=== PATIENT | female | born 1940 | race Caucasian/White ===

== ENCOUNTER 2019-06-01 17:56 | Emergency (ER) | payer MEDICARE, BC ==
[2019-06-01] MEDS ORDERED: cloNIDine 0.1 MG TAB ONE ×3 (18:33→20:23)
[2019-06-01] MEDS ORDERED: Adacel (T-DAP) 0.5 ML SYRINGE ONE (18:34)
--- NOTE | 2019-06-01 20:36 | CT ---
CT BRAIN: 06/01/19 PROVIDED CLINICAL HISTORY: Head injury. FINDINGS: No comparisons. The ventricular system appears normal in size and morphology. There is no evidence fo r intracranial hemorrhage or mass effect. There is a rounded 8 mm hyperdense mass present in the fora men of [place] compatible with a colloid cyst. There is no hydrocephalus. The extracranial soft tissues and osseous structures appear unremarkable with the exception of occipital scalp hematoma. IMPRESSION: 1. No evidence for intracranial hemorrhage or mass effect. 2. 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 Consider nonemergent neurosurgical cons ultation. POS: JANE
== END 2019-06-01 20:52 | disposition home or self-care (01) ==
LOC: ERS 17:56
DX: S00.03XA Contusion of scalp, initial encounter (principal); I10 Essential (primary) hypertension; E11.9 Type 2 diabetes mellitus without complications; J45.909 Unspecified asthma, uncomplicated; Z79.84 Long term (current) use of oral hypoglycemic drugs; Z79.899 Other long term (current) drug therapy; W01.10XA Fall on same level from slipping, tripping and stumbling with subsequent striking against unspecified object, initial encounter; Y92.481 Parking lot as the place of occurrence of the external cause
CPT/HCPCS: 70450; 90471; 90715

== ENCOUNTER 2022-01-31 09:48 | Outpatient (CLI) | payer MEDICARE, BC | END 2022-01-31 09:49 | disposition home or self-care (01) | LOC: BICMAMMO 09:48 | PROVIDERS: ATTEND Internal Medicine | DX: Z12.31 Encounter for screening mammogram for malignant neoplasm of breast (principal); Z91.89 Other specified personal risk factors, not elsewhere classified | CPT/HCPCS: 77063; 77067 ==

== ENCOUNTER 2023-02-21 10:04 | Outpatient (CLI) | payer MEDICARE, BC | END 2023-02-21 10:05 | disposition home or self-care (01) | LOC: BICMAMMO 10:04 | PROVIDERS: ATTEND Internal Medicine | DX: Z12.31 Encounter for screening mammogram for malignant neoplasm of breast (principal) | CPT/HCPCS: 77063; 77067 ==

== ENCOUNTER 2023-11-23 09:10 | Inpatient (IN) | payer MEDICARE, BC ==
[2023-11-23] MEDS ORDERED: niCARdipine 25 MG/10 ML SDV ONE ×2 (09:34→12:08)
[2023-11-23 09:38] LABS: #Basophils 0.04 10x3/uL (0.0-0.2); %Basophils 0.6 % (0.0-1.0); %Eosinophils 2.4 % (0.0-10.0); %Lymphocytes 19.8 % (21.0-51.0); %Neutrophils 68.1 % (42.0-75.0); Hematocrit 43.1 % (36.0-47.0); Hemoglobin 14.1 g/dL (12.0-16.0); Mean Corpuscular HGB CONC 32.7 g/dL (32.0-36.0); Mean Corpuscular Hemoglobin 29.1 pg (27.0-31.0); Mean Platelet Volume 9.9 fL (7.4-10.4); Platelet Count 182 10x3/uL (130-400); RBC Distribution Width 12.7 % (11.5-14.5); Red Blood Cell (RBC) Count 4.84 mill/uL (4.20-5.40)
[2023-11-23 09:52] LABS: Prothrombin Time 13.3 sec (12.0-14.7)
[2023-11-23 09:53] LABS: ALT (SGPT) 13 U/L (8-55); AST (SGOT) 15 U/L (5-34); Albumin 3.3 g/dL (3.4-4.8); Alkaline Phosphatase 77 U/L (40-110); Anion Gap 14 mmol/L (10-20); BUN (Urea Nitrogen) 28 mg/dL (9.8-20.1); Bilirubin, Total 0.5 mg/dL (0.2-1.2); Calc. Creatinine Clearance 0 mL/min (70-130); Calcium 9.2 mg/dL (7.8-10.44); Carbon Dioxide 19 mmol/L (23-31); Chloride 109 mmol/L (98-107); Estimated GFR 54; Globulin 3.2 g/dL (2.4-3.5); Glucose 249 mg/dL (83-110); PTT 26.5 sec (22.9-36.1); Potassium 4.4 mmol/L (3.5-5.1); Protein, Total 6.5 g/dL (5.8-8.1); Sodium 138 mmol/L (136-145)
[2023-11-23 09:58] LABS: Troponin I 0.016 ng/mL (< 0.028)
[2023-11-23 10:33] LABS: Bacteria/HPF None Seen HPF (None Seen); Bilirubin Negative (Negative); Blood, Urine Trace (Negative); CAUTI Indications for Culture Alt mental st,lethar; Clarity Clear (Clear); Glucose, Urine (Dipstick) Normal (Negative); Ketone, Urine Negative (Negative); Leukocyte Negative Leu/uL (Negative); Nitrite Negative (Negative); Protein, Urine (Dipstick) 30 mg/dL (Neg-Trace); Squamous Epithelial 0-3 HPF (0-3); Urobilinogen Normal mg/dL (Less than 2); WBC/HPF 0-3 HPF (0-3)
[2023-11-23 10:34] LABS: Urine Culture Reflex No No
[2023-11-23] MEDS ORDERED: Ondansetron PF 4 MG/2 ML Vial IVP PRN (12:01)
[2023-11-23] MEDS ORDERED: Senokot S 8.6-50 MG TAB PO PRN (12:01)
[2023-11-23] MEDS ORDERED: niCARdipine 25 MG in Sodium Chloride 0.9% 250 ML 250 ML IVPB PRN (12:01)
[2023-11-23] MEDS ORDERED: Glucagon 1 MG/ML KIT IM PRN (12:01)
[2023-11-23] MEDS ORDERED: Dextrose 5% in Water 1,000 ML IV PRN (12:01)
[2023-11-23] MEDS ORDERED: Dextrose 50% Abboject 50 ML SYRINGE SLOW IVP PRN (12:01)
[2023-11-23] MEDS ORDERED: Calcium Carbonate 500 MG ChewTAB PO PRN (12:01)
[2023-11-23] MEDS ORDERED: Electrolyte Replacement Protocol FS PRN (12:30)
[2023-11-23 13:34] VITALS: BMI 26.7
[2023-11-23] MEDS: Insulin Lispro 100 UNIT/ML 10 ML VIAL SC PRN (15:36)
[2023-11-23] MEDS: niCARdipine 25 MG in Sodium Chloride 0.9% 250 ML 250 ML IVPB PRN (15:38)
[2023-11-23] MEDS: Acetaminophen 650 MG Suppository PR PRN (16:20)
[2023-11-23] MEDS: Lactated Ringer's 1,000 ML IV SCH (20:13)
[2023-11-23] MEDS: Famotidine/PF 20 mg/2ml Vial SLOW IVP SCH (20:13)
[2023-11-23] MEDS: Atorvastatin Calcium 40 MG TAB PO SCH (20:14)
[2023-11-23] MEDS: Electrolyte Replacement Protocol 1 EACH IVPB ONE (21:13)
[2023-11-23] MEDS: Labetalol HCl 100 MG/20 ML VIAL SLOW IVP PRN (23:37)
[2023-11-24 04:57] LABS: #Basophils 0.04 10x3/uL (0.0-0.2); %Basophils 0.4 % (0.0-1.0); %Eosinophils 0.7 % (0.0-10.0); %Lymphocytes 23.1 % (21.0-51.0); %Monocytes 11.3 % (0.0-10.0); %Neutrophils 64.1 % (42.0-75.0); Hematocrit 41.4 % (36.0-47.0); Hemoglobin 13.3 g/dL (12.0-16.0); Mean Corpuscular HGB CONC 32.1 g/dL (32.0-36.0); Mean Corpuscular Hemoglobin 28.7 pg (27.0-31.0); Mean Corpuscular Volume 89.4 fL (78.0-98.0); Mean Platelet Volume 10.4 fL (7.4-10.4); Platelet Count 207 10x3/uL (130-400); RBC Distribution Width 12.8 % (11.5-14.5); Red Blood Cell (RBC) Count 4.63 mill/uL (4.20-5.40)
[2023-11-24 05:05] LABS: ALT (SGPT) 15 U/L (8-55); AST (SGOT) 18 U/L (5-34); Alkaline Phosphatase 69 U/L (40-110); Anion Gap 13 mmol/L (10-20); BUN (Urea Nitrogen) 29 mg/dL (9.8-20.1); Bilirubin, Total 0.6 mg/dL (0.2-1.2); Calc. Creatinine Clearance 55 mL/min (70-130); Calcium 8.7 mg/dL (7.8-10.44); Carbon Dioxide 19 mmol/L (23-31); Cardiac Risk 5.4 (Less than 4.5); Chloride 110 mmol/L (98-107); Cholesterol 182 mg/dl (< 200 Desired); Estimated GFR 67; Glucose 97 mg/dL (83-110); HDL Cholesterol 34 mg/dL (>60 Neg Risk); LDL Cholesterol, Calculated 107 mg/dL; Potassium 4.1 mmol/L (3.5-5.1); Sodium 138 mmol/L (136-145); Triglycerides 206 mg/dL (Less than 150)
[2023-11-24] MEDS: Lactated Ringer's 1,000 ML IV SCH (08:35)
[2023-11-24] MEDS: Morphine 4 MG/ML VIAL SLOW IVP PRN (09:18)
[2023-11-24] MEDS: Albumin 25% 25 GM (100 mL) BOT IVPB SCH (18:40)
[2023-11-24] MEDS: Lactated Ringer's 500 ML IV SCH (23:02)
[2023-11-25] MEDS: Furosemide 20 MG (2 mL) VIAL SLOW IVP SCH (00:24)
[2023-11-25 04:09] LABS: #Basophils 0.04 10x3/uL (0.0-0.2); %Basophils 0.5 % (0.0-1.0); %Eosinophils 2.1 % (0.0-10.0); %Lymphocytes 14.5 % (21.0-51.0); %Monocytes 10.7 % (0.0-10.0); %Neutrophils 71.9 % (42.0-75.0); Hematocrit 41.8 % (36.0-47.0); Hemoglobin 13.6 g/dL (12.0-16.0); Mean Corpuscular HGB CONC 32.5 g/dL (32.0-36.0); Mean Corpuscular Hemoglobin 29.1 pg (27.0-31.0); Mean Corpuscular Volume 89.5 fL (78.0-98.0); Mean Platelet Volume 10.3 fL (7.4-10.4); Platelet Count 189 10x3/uL (130-400); Red Blood Cell (RBC) Count 4.67 mill/uL (4.20-5.40)
[2023-11-25 04:24] LABS: Anion Gap 13 mmol/L (10-20); BUN (Urea Nitrogen) 28 mg/dL (9.8-20.1); Calc. Creatinine Clearance 56 mL/min (70-130); Calcium 8.7 mg/dL (7.8-10.44); Carbon Dioxide 19 mmol/L (23-31); Chloride 110 mmol/L (98-107); Estimated GFR 65; Glucose 104 mg/dL (83-110); Magnesium 1.8 mg/dL (1.6-2.6); Sodium 138 mmol/L (136-145)
[2023-11-25] MEDS: Magnesium 2 GM/50 ML(in water) 2 GM in Premix 1 BAG IVPB SCH (06:49)
[2023-11-25] MEDS ORDERED: Dextrose 5%-Lactated Ringers 1,000 ML IV SCH (09:00)
[2023-11-25] MEDS: cloNIDine 0.1mg/24 Hour PATCH TD SCH (10:02)
[2023-11-25] MEDS: Dextrose 5%-Lactated Ringers 1,000 ML IV SCH (10:18)
[2023-11-25] MEDS ORDERED: Iopamidol-370 76% 500 ML MDV (1 ML CHARGE) ONE (10:36)
[2023-11-25] MEDS ORDERED: Artificial Tear Ophth Sol 15 ML BOT EA EYE PRN (15:37)
[2023-11-25] MEDS ORDERED: Sodium Chloride 0.65% Nasal 44 ML BOT EA NARE PRN (15:37)
[2023-11-25] MEDS ORDERED: Loratadine 10 MG TAB PO PRN (15:37)
[2023-11-25] MEDS ORDERED: Lorazepam 2 MG/ML VIAL SLOW IVP PRN (15:41)
[2023-11-25] MEDS: LevoFLOXacin 500 mg/D5W 500 MG in Premix 1 BAG IVPB SCH (17:02)
[2023-11-25] MEDS: Sodium Chloride 3% (15 ML) NEB NEB SCH (17:02)
[2023-11-25] MEDS: Losartan 25 MG TAB PO SCH (22:25)
[2023-11-26 05:54] LABS: Anion Gap 12 mmol/L (10-20); BUN (Urea Nitrogen) 24 mg/dL (9.8-20.1); Calc. Creatinine Clearance 56 mL/min (70-130); Calcium 8.8 mg/dL (7.8-10.44); Carbon Dioxide 24 mmol/L (23-31); Chloride 105 mmol/L (98-107); Estimated GFR 66; Glucose 122 mg/dL (83-110); Sodium 137 mmol/L (136-145)
[2023-11-26] MEDS ORDERED: Enalaprilat Dihydrate 1.25 MG/ML VIAL SLOW IVP PRN (08:44)
[2023-11-26] MEDS: cloNIDine 0.2mg/24 Hour PATCH TD SCH (09:36)
[2023-11-26] MEDS: Labetalol HCl 100 MG TAB PO SCH ×2 (11:13→20:47)
[2023-11-26] MEDS: Enalaprilat Dihydrate 1.25 MG/ML VIAL SLOW IVP PRN (15:28)
[2023-11-26] MEDS ORDERED: Chlorthalidone 25 MG TAB PO SCH (15:41)
[2023-11-26] MEDS: Chlorthalidone 25 MG TAB PO SCH (16:04)
[2023-11-26] MEDS: Amlodipine 5 MG TAB PO SCH (18:45)
[2023-11-26] MEDS: Acetaminophen 325 MG TAB PO PRN (22:51)
[2023-11-27] MEDS: Amlodipine 5 MG TAB PO SCH ×2 (08:38→16:00)
[2023-11-27] MEDS: Chlorthalidone 25 MG TAB PO SCH (08:39)
[2023-11-27] MEDS: Labetalol HCl 100 MG/20 ML VIAL SLOW IVP PRN (11:12)
[2023-11-28] MEDS: Loperamide HCl 2 MG CAP PO PRN (03:27)
[2023-11-28] MEDS: Amlodipine 10 MG TAB PO SCH (09:21)
[2023-11-29 04:05] LABS: #Basophils 0.05 10x3/uL (0.0-0.2); %Basophils 0.5 % (0.0-1.0); %Eosinophils 4.6 % (0.0-10.0); %Lymphocytes 17.2 % (21.0-51.0); %Monocytes 13.1 % (0.0-10.0); %Neutrophils 64.2 % (42.0-75.0); Hematocrit 38.3 % (36.0-47.0); Hemoglobin 12.9 g/dL (12.0-16.0); Mean Corpuscular HGB CONC 33.7 g/dL (32.0-36.0); Mean Corpuscular Hemoglobin 29.1 pg (27.0-31.0); Mean Corpuscular Volume 86.3 fL (78.0-98.0); Mean Platelet Volume 11.3 fL (7.4-10.4); Platelet Count 199 10x3/uL (130-400); RBC Distribution Width 12.9 % (11.5-14.5); Red Blood Cell (RBC) Count 4.44 mill/uL (4.20-5.40)
[2023-11-29 04:17] LABS: Anion Gap 13 mmol/L (10-20); BUN (Urea Nitrogen) 41 mg/dL (9.8-20.1); Calc. Creatinine Clearance 42 mL/min (70-130); Calcium 8.6 mg/dL (7.8-10.44); Carbon Dioxide 24 mmol/L (23-31); Chloride 102 mmol/L (98-107); Estimated GFR 48; Glucose 118 mg/dL (83-110); Potassium 4.1 mmol/L (3.5-5.1); Sodium 135 mmol/L (136-145)
[2023-11-29] MEDS: Preparation H Suppository PR PRN (17:56)
[2023-11-30 06:00] LABS: #Basophils Less than 0.03 10x3/uL (0.0-0.2); %Basophils 0.3 % (0.0-1.0); %Eosinophils 4.9 % (0.0-10.0); %Lymphocytes 15.9 % (21.0-51.0); %Monocytes 11.8 % (0.0-10.0); %Neutrophils 66.6 % (42.0-75.0); Hematocrit 37.5 % (36.0-47.0); Hemoglobin 12.3 g/dL (12.0-16.0); Mean Corpuscular HGB CONC 32.8 g/dL (32.0-36.0); Mean Corpuscular Hemoglobin 28.5 pg (27.0-31.0); Mean Corpuscular Volume 86.8 fL (78.0-98.0); Mean Platelet Volume 10.8 fL (7.4-10.4); Platelet Count 186 10x3/uL (130-400); RBC Distribution Width 12.9 % (11.5-14.5); Red Blood Cell (RBC) Count 4.32 mill/uL (4.20-5.40)
[2023-11-30] MEDS: LevoFLOXacin 750 mg/D5W 750 MG in Premix 1 BAG IVPB SCH (08:59)
[2023-11-30] MEDS: Cyclobenzaprine 10 MG TAB PO SCH (15:57)
[2023-12-01 04:27] LABS: #Basophils Less than 0.03 10x3/uL (0.0-0.2); %Basophils 0.3 % (0.0-1.0); %Eosinophils 4.9 % (0.0-10.0); %Lymphocytes 21.5 % (21.0-51.0); %Neutrophils 59.9 % (42.0-75.0); Hematocrit 37.9 % (36.0-47.0); Hemoglobin 12.8 g/dL (12.0-16.0); Mean Corpuscular HGB CONC 33.8 g/dL (32.0-36.0); Mean Corpuscular Hemoglobin 29.1 pg (27.0-31.0); Mean Corpuscular Volume 86.1 fL (78.0-98.0); Mean Platelet Volume 10.9 fL (7.4-10.4); Platelet Count 194 10x3/uL (130-400); RBC Distribution Width 12.9 % (11.5-14.5)
[2023-12-01] MEDS: Guaifenesin DM 100-10/5 ML UDCUP PO PRN (09:11)
[2023-12-01 10:57] VITALS: BMI 27.7
[2023-12-01 16:23] VITALS: BP 121/58; TEMP 97.5
== END 2023-12-01 18:34 | DRG 64 ==
LOC: ERS 09:10 → CCU 12:21 → 2SE 11-25 21:12
PROVIDERS: ADMIT Internal Medicine; ATTEND Internal Medicine
PROC: 4A00X4Z Measurement of Central Nervous Electrical Activity, External Approach (ICD-10-PCS; principal; 2023-11-25)
DX: I62.9 Nontraumatic intracranial hemorrhage, unspecified (principal); G93.41 Metabolic encephalopathy; G93.6 Cerebral edema; G81.94 Hemiplegia, unspecified affecting left nondominant side; I16.1 Hypertensive emergency; G93.0 Cerebral cysts; E88.09 Other disorders of plasma-protein metabolism, not elsewhere classified; R13.12 Dysphagia, oropharyngeal phase; R53.81 Other malaise; J32.9 Chronic sinusitis, unspecified; W19.XXXA Unspecified fall, initial encounter; E78.5 Hyperlipidemia, unspecified; I10 Essential (primary) hypertension; Z66 Do not resuscitate; E11.9 Type 2 diabetes mellitus without complications; J45.909 Unspecified asthma, uncomplicated; Z90.49 Acquired absence of other specified parts of digestive tract; Z90.710 Acquired absence of both cervix and uterus; Y93.89 Activity, other specified; Y92.89 Other specified places as the place of occurrence of the external cause; Z88.8 Allergy status to other drugs, medicaments and biological substances; Z79.899 Other long term (current) drug therapy; Z79.84 Long term (current) use of oral hypoglycemic drugs; E87.8 Other disorders of electrolyte and fluid balance, not elsewhere classified; Z88.2 Allergy status to sulfonamides; Z88.5 Allergy status to narcotic agent
CPT/HCPCS: 36415; 36416; 51702; 70450; 70496; 70498; 70551; 71045; 72125; 74018; 74230; 80048; 80053; 80061; 81001; 83735; 84443; 84484; 85025; 85610; 85730; 93005; 94640; 94760; 95700; 95711; 95957; 96365; 96366; 99292; J1815; J1940; J1956; J2272; J3475; J3490; J7050; J7120; P9047; Q9967

== ENCOUNTER 2024-01-05 19:02 | Inpatient (IN) | payer MEDICARE, BC ==
[2024-01-05 20:38] LABS: #Basophils 0.03 10x3/uL (0.0-0.2); %Basophils 0.3 % (0.0-1.0); %Eosinophils 0.8 % (0.0-10.0); %Lymphocytes 10.2 % (21.0-51.0); %Monocytes 6.7 % (0.0-10.0); Hematocrit 31.1 % (36.0-47.0); Hemoglobin 10.4 g/dL (12.0-16.0); Mean Corpuscular HGB CONC 33.4 g/dL (32.0-36.0); Mean Corpuscular Hemoglobin 27.7 pg (27.0-31.0); Mean Corpuscular Volume 82.7 fL (78.0-98.0); Mean Platelet Volume 9.5 fL (7.4-10.4); Platelet Count 222 10x3/uL (130-400); RBC Distribution Width 13.5 % (11.5-14.5); Red Blood Cell (RBC) Count 3.76 mill/uL (4.20-5.40)
[2024-01-05 20:57] LABS: INR-International Normal Ratio 1.2; Prothrombin Time 15.4 sec (12.0-14.7)
[2024-01-05 20:58] LABS: PTT 23.2 sec (22.9-36.1)
[2024-01-05 21:08] LABS: ALT (SGPT) 22 U/L (8-55); AST (SGOT) 19 U/L (5-34); Albumin 2.4 g/dL (3.4-4.8); Alkaline Phosphatase 99 U/L (40-110); Anion Gap 21 mmol/L (10-20); Bilirubin, Total 0.7 mg/dL (0.2-1.2); Calc. Creatinine Clearance 0 mL/min (70-130); Calcium 8.5 mg/dL (7.8-10.44); Carbon Dioxide 22 mmol/L (23-31); Chloride 97 mmol/L (98-107); Estimated GFR 6; Globulin 3.7 g/dL (2.4-3.5); Glucose 227 mg/dL (83-110); Potassium 4.9 mmol/L (3.5-5.1); Protein, Total 6.1 g/dL (5.8-8.1); Sodium 135 mmol/L (136-145)
[2024-01-05 21:28] LABS: BUN (Urea Nitrogen) Greater than 125 mg/dL (9.8-20.1)
[2024-01-05] MEDS ORDERED: cefTRIAXone (ROCEPHIN) 1 GM VIAL ONE (22:19)
[2024-01-05] MEDS ORDERED: Sodium Chloride 0.9% 100 ML ONE (22:19)
[2024-01-05 22:27] LABS: Clarity Extra Turbid (Clear)
[2024-01-05 22:30] LABS: Bilirubin Negative (Negative); Blood, Urine Large (Negative); Glucose, Urine (Dipstick) Negative (Negative); Ketone, Urine Negative (Negative); Leukocyte Large (Negative); Nitrite Negative (Negative); Protein, Urine (Dipstick) 100 mg/dL (Neg-Trace); Urobilinogen 0.2 mg/dL (Less than 2)
[2024-01-05 22:32] LABS: Specific Gravity, Urine 1.016 (1.002-1.036)
[2024-01-05 22:34] LABS: Bacteria/HPF 4+ HPF (None Seen); CAUTI Indications for Culture Alt mental st,lethar
[2024-01-05 22:35] LABS: WBC/HPF Greater than 50 HPF (0-3)
[2024-01-05 22:38] LABS: Urine Culture Reflex Yes Yes
[2024-01-06] MEDS ORDERED: Ondansetron ODT 4 MG TAB PO PRN (00:29)
[2024-01-06] MEDS ORDERED: Ondansetron PF 4 MG/2 ML Vial IVP PRN ×2 (00:29→12:45)
[2024-01-06] MEDS ORDERED: Acetaminophen 650 MG Suppository PR PRN ×2 (00:29→12:45)
[2024-01-06] MEDS ORDERED: Lactated Ringer's 1,000 ML IV SCH (00:30)
[2024-01-06] MEDS: Sodium Chloride 0.9% 1,000 ML IV SCH (04:55)
[2024-01-06] MEDS: Acetaminophen 325 MG TAB PO SCH (04:57)
[2024-01-06 06:10] LABS: #Basophils 0.03 10x3/uL (0.0-0.2); %Basophils 0.3 % (0.0-1.0); %Eosinophils 0.4 % (0.0-10.0); %Lymphocytes 8.6 % (21.0-51.0); %Monocytes 6.6 % (0.0-10.0); %Neutrophils 83.3 % (42.0-75.0); Hematocrit 30.1 % (36.0-47.0); Hemoglobin 9.8 g/dL (12.0-16.0); Mean Corpuscular HGB CONC 32.6 g/dL (32.0-36.0); Mean Corpuscular Hemoglobin 27.7 pg (27.0-31.0); Mean Platelet Volume 9.8 fL (7.4-10.4); Platelet Count 179 10x3/uL (130-400); RBC Distribution Width 13.6 % (11.5-14.5); Red Blood Cell (RBC) Count 3.54 mill/uL (4.20-5.40)
[2024-01-06 07:24] LABS: Anion Gap 18 mmol/L (10-20); Calc. Creatinine Clearance 0 mL/min (70-130); Calcium 8.5 mg/dL (7.8-10.44); Carbon Dioxide 20 mmol/L (23-31); Chloride 104 mmol/L (98-107); Estimated GFR 7; Glucose 191 mg/dL (83-110); Potassium 4.7 mmol/L (3.5-5.1); Sodium 137 mmol/L (136-145)
[2024-01-06 07:32] LABS: BUN (Urea Nitrogen) 167 mg/dL (9.8-20.1)
[2024-01-06 08:40] VITALS: BMI 24.0
[2024-01-06] MEDS ORDERED: Losartan 25 MG TAB PO SCH (09:00)
[2024-01-06] MEDS ORDERED: Amlodipine 10 MG TAB PO SCH (09:00)
[2024-01-06] MEDS ORDERED: LUTEIN PO SCH (09:00)
[2024-01-06] MEDS ORDERED: Chlorthalidone 25 MG TAB PO SCH (09:00)
[2024-01-06] MEDS ORDERED: BIOTIN PO SCH (09:00)
[2024-01-06] MEDS ORDERED: cloNIDine 0.2mg/24 Hour PATCH TD SCH (09:00)
[2024-01-06] MEDS: Cholecalciferol 1,000 UNITS (25 MCG) TAB PO SCH (09:57)
[2024-01-06] MEDS: Famotidine 20 MG TAB PO SCH (09:57)
[2024-01-06] MEDS: Polyethylene Glycol 3350 17 GM Packet PO SCH (09:58)
[2024-01-06] MEDS: Labetalol HCl 100 MG TAB PO SCH (09:58)
[2024-01-06 11:14] LABS: Creatinine, Urine 54.2 mg/dL (47-110)
[2024-01-06] MEDS: Famotidine/PF 20 mg/2ml Vial SLOW IVP SCH (11:29)
[2024-01-06] MEDS ORDERED: Lorazepam 2 MG/ML VIAL SLOW IVP PRN (12:45)
[2024-01-06 12:52] VITALS: BP 118/68; TEMP 97.7
[2024-01-06] MEDS: Morphine 2 MG/ML VIAL SLOW IVP PRN (14:30)
[2024-01-06] MEDS ORDERED: Atorvastatin Calcium 40 MG TAB PO SCH (21:00)
[2024-01-06] MEDS ORDERED: Senokot S 8.6-50 MG TAB PO SCH (21:00)
[2024-01-06] MEDS ORDERED: cefTRIAXone\\ROCEPHIN 1 GM in Sodium Chloride 0.9% 100 ML IVPB SCH (22:00)
== END 2024-01-06 15:32 | disposition hospice, inpatient (51) | DRG 683 ==
LOC: ERS 19:02 → ERHOLD 01-06 00:34 → MSONC 01-06 07:26
PROVIDERS: ADMIT Student in an Organized Health Care Education/Training Program; ATTEND Hospitalist
PROC: 0T9B70Z Drainage of Bladder with Drainage Device, Via Natural or Artificial Opening (ICD-10-PCS; principal; 2024-01-06)
DX: N17.9 Acute kidney failure, unspecified (principal); N39.0 Urinary tract infection, site not specified; Z66 Do not resuscitate; Z88.8 Allergy status to other drugs, medicaments and biological substances; Z88.1 Allergy status to other antibiotic agents; Z88.2 Allergy status to sulfonamides; Z88.0 Allergy status to penicillin; F03.90 Unspecified dementia, unspecified severity, without behavioral disturbance, psychotic disturbance, mood disturbance, and anxiety; E11.9 Type 2 diabetes mellitus without complications; I10 Essential (primary) hypertension; Z90.49 Acquired absence of other specified parts of digestive tract; Z90.710 Acquired absence of both cervix and uterus; Z90.89 Acquired absence of other organs; N13.9 Obstructive and reflux uropathy, unspecified; Z51.5 Encounter for palliative care
CPT/HCPCS: 36415; 36416; 51702; 70450; 71045; 72125; 72131; 72170; 72192; 80048; 80053; 81001; 82550; 82570; 84156; 84300; 85025; 85610; 85730; 86850; 86900; 86901; 87077; 87086; 87186; 93005; 96361; 96374; J0696; J2272; J3490; J7030

== ENCOUNTER 2024-01-06 15:40 | Inpatient (IN) | payer OTHER ==
[2024-01-06 15:57] VITALS: BMI 24.7
[2024-01-06] MEDS ORDERED: Acetaminophen 650 MG Suppository PR PRN (16:15)
[2024-01-06] MEDS ORDERED: Ondansetron PF 4 MG/2 ML Vial IVP PRN (16:15)
[2024-01-06] MEDS ORDERED: Morphine 4 MG/ML VIAL SLOW IVP PRN ×2 (16:17→16:21)
[2024-01-06] MEDS ORDERED: Lorazepam 2 MG/ML VIAL SLOW IVP PRN (16:23)
[2024-01-06] MEDS ORDERED: Bisacodyl 10 MG SUPP PR PRN (16:24)
[2024-01-06] MEDS: Lorazepam 2 MG/ML VIAL SLOW IVP PRN (16:59)
[2024-01-06] MEDS: Morphine 4 MG/ML VIAL SLOW IVP SCH (18:04)
[2024-01-06] MEDS: Lorazepam 2 MG/ML VIAL SLOW IVP SCH (18:04)
[2024-01-09 10:39] VITALS: BMI 24.7
[2024-01-09] MEDS: Scopolamine 1 mg/72 hour Patch TOP PRN (11:15)
[2024-01-11 08:29] VITALS: BP 96/62; TEMP 97.2
== END 2024-01-11 09:50 | disposition expired | DRG 951 ==
LOC: MSONC 15:40
PROVIDERS: ADMIT Family Medicine; ATTEND Family Medicine
DX: Z51.5 Encounter for palliative care (principal); N17.9 Acute kidney failure, unspecified; N39.0 Urinary tract infection, site not specified; I10 Essential (primary) hypertension; Z88.2 Allergy status to sulfonamides; Z88.0 Allergy status to penicillin; Z88.8 Allergy status to other drugs, medicaments and biological substances; Z88.1 Allergy status to other antibiotic agents; E11.9 Type 2 diabetes mellitus without complications; Z90.49 Acquired absence of other specified parts of digestive tract; Z90.89 Acquired absence of other organs; Z90.710 Acquired absence of both cervix and uterus; Z82.49 Family history of ischemic heart disease and other diseases of the circulatory system
CPT/HCPCS: J2060; J2272